=== PATIENT | female | born 1940 | race Caucasian/White ===

== ENCOUNTER → 2016-12-01 | Outpatient (CLI) | payer MEDICARE ==
--- NOTE | 2016-12-01 12:12 | RAD ---
Bone Densitometry History: Osteoporosis screening, postmenopausal, white female, tobacco use. Comparison: 09/30/2010. Findings: Bone Densitometry was performed with dual photon absorption of the lumbar spine and proximal right femur. Lumbar Spine: Bone density is 0.845 g/cm2 for L1-L4. T-score is -2.8. Bone mineral density of the lumbar spine demonstrates 6.8% decrease from previous study. Right Femur: Bone density is 0.659 g/cm2. T-score is -2.9. Bone mineral density of the right hip demonstrates 8.7% decrease from previous study. 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 World Health Organization definition of osteoporosis and osteopenia for women: normal equals T score at or above -1.0 standard deviations; osteopenia equals T score between -1.0 and -2.5 standard deviations; osteoporosis equals T score at or below -2.5 standard deviations.
--- NOTE | 2016-12-01 13:36 | RAD ---
EXAM: MAMMO WILIAM SCREENING BILATERAL. HISTORY: Screening. COMPARISON: 06/25/2014. FINDINGS: 2-D and 3-D tomosynthesis mammograms were obtained of both breasts in the CC and MLO projections. Computer-aided detection (CAD) was utilized. The breast parenchyma is dense which could reduce sensitivity of mammography (tissue density D). No dominant suspicious mass, suspicious microcalcifications, or architectural distortion is identified. Both breasts demonstrate benign appearing calcifications. IMPRESSION: No mammographic evidence of malignancy. BI-RADS CATEGORY: 2 BENIGN FINDING RECOMMENDED FOLLOW-UP: 12M 12 MONTH FOLLOW-UP PQRS compliance statement: Patient information was entered into a reminder system with a target due date for the next mammogram. Mammography is a sensitive method for finding small breast cancers, but it does not detect them all and is not a substitute for careful clinical examination. A negative mammogram does not negate a clinically suspicious finding and should not result in delay in biopsying a clinically suspicious abnormality. "Our facility is accredited by the [employer] Mammography Program."
== END | disposition home or self-care (01) ==
LOC: MAMMO 11:10
PROVIDERS: ATTEND Specialist
DX: Z12.31 Encounter for screening mammogram for malignant neoplasm of breast (principal); M85.80 Other specified disorders of bone density and structure, unspecified site; M81.0 Age-related osteoporosis without current pathological fracture; Z78.0 Asymptomatic menopausal state; Z72.0 Tobacco use
CPT/HCPCS: 77063; 77080; G0202; 77067

== ENCOUNTER → 2017-09-29 | Outpatient (CLI) | payer MEDICARE | END | disposition home or self-care (01) | LOC: SURG 11:43 | PROVIDERS: ATTEND Anesthesiology Pain Medicine | DX: M47.896 Other spondylosis, lumbar region (principal); E10.69 Type 1 diabetes mellitus with other specified complication; M62.81 Muscle weakness (generalized); E07.89 Other specified disorders of thyroid; R51 Headache | CPT/HCPCS: 99203 ==

== ENCOUNTER → 2017-10-14 | Outpatient (CLI) | payer MEDICARE ==
[~2017-10-14] MED LIST: DEXAMETHASONE SOD PHOS 4 MG/ML VIAL ONE; IOHEXOL 300 MG/ML 50 ML VIAL. ONE; LIDOCAINE 1% PF 30 ML VIAL. ONE
== END | disposition home or self-care (01) ==
LOC: SURG 10:39
PROVIDERS: ATTEND Anesthesiology Pain Medicine
DX: M54.12 Radiculopathy, cervical region (principal); I10 Essential (primary) hypertension; E10.9 Type 1 diabetes mellitus without complications; K74.60 Unspecified cirrhosis of liver; E07.9 Disorder of thyroid, unspecified; Z79.899 Other long term (current) drug therapy
CPT/HCPCS: 62321; J1100; J2001; Q9967

== ENCOUNTER → 2017-11-12 | Outpatient (CLI) | payer MEDICARE ==
--- NOTE | 2017-11-12 11:43 | RAD ---
PQRS Compliance Statement: One or more of the following individualized dose reduction techniques were utilized for this examination: 1. Automated exposure control 2. Adjustment of the mA and/or kV according to patient size 3. Use of iterative reconstruction technique CT LUMBAR SPINE WO CONTRAST Clinical Indication: LOW BACK PAIN, HX OF DEGENERATION, HX OF POLIO Comparison: None. TECHNIQUE: Helical CT imaging of the lumbar spine is performed without IV contrast. Findings: There is no compression fracture. The vertebral body height and alignment are maintained. The disc spaces are maintained. Transverse processes are intact. Visualized pelvic bones unremarkable. L1/L2 and L2/L3: Central canal and neural foramina are patent. L3/L4: There is small broad-based posterior disc osteophyte complex and mild ligamentum flavum redundancy. No significant central canal stenosis. There is mild left and moderate right neural foraminal narrowing. L4/L5: Minimal broad-based posterior disc osteophyte complex. Mild ligamentum flavum redundancy. The central canal is patent. Moderate right and mild to moderate left neural foraminal narrowing. L5/S1: Unremarkable. Lung bases are clear. Adrenal gland hyperplasia. Cholecystectomy. Severe atherosclerotic calcification of the abdominal aorta and iliac arteries. There is prominent stool in the right colon. IMPRESSION: 1. No acute compression fracture or malalignment. 2. Minimal degenerative spondylosis for patient age. Individual levels detailed above. Electronically signed by: Manjit Belle MD (11/12/2017 11:40 AM) [id number]
== END | disposition home or self-care (01) ==
LOC: CT 09:56
PROVIDERS: ATTEND Psychiatry & Neurology Neurology
DX: M47.896 Other spondylosis, lumbar region (principal); M48.061 Spinal stenosis, lumbar region without neurogenic claudication; M25.78 Osteophyte, vertebrae; I70.0 Atherosclerosis of aorta; E27.8 Other specified disorders of adrenal gland; I10 Essential (primary) hypertension; E10.69 Type 1 diabetes mellitus with other specified complication; Z86.12 Personal history of poliomyelitis
CPT/HCPCS: 72131

== ENCOUNTER → 2017-11-18 | Outpatient (CLI) | payer MEDICARE ==
[~2017-11-18] MED LIST changes: +BUPIVACAINE MPF 0.5% 30 ML VIAL. ONE; -DEXAMETHASONE SOD PHOS 4 MG/ML VIAL ONE; -IOHEXOL 300 MG/ML 50 ML VIAL. ONE
== END | disposition home or self-care (01) ==
LOC: SURG 10:00
PROVIDERS: ATTEND Anesthesiology Pain Medicine
DX: M47.816 Spondylosis without myelopathy or radiculopathy, lumbar region (principal); I10 Essential (primary) hypertension; M19.90 Unspecified osteoarthritis, unspecified site; E10.9 Type 1 diabetes mellitus without complications; F17.210 Nicotine dependence, cigarettes, uncomplicated; Z72.89 Other problems related to lifestyle; Z88.2 Allergy status to sulfonamides; Z88.0 Allergy status to penicillin; Z88.1 Allergy status to other antibiotic agents; Z88.8 Allergy status to other drugs, medicaments and biological substances
CPT/HCPCS: 64493; 64494; J2001; J3490; 64495

== ENCOUNTER → 2017-12-02 | Outpatient (CLI) | payer MEDICARE ==
--- NOTE | 2017-12-02 15:04 | RAD ---
DATE: 12/02/2017 EXAM: MAMMO WILIAM SCREENING BILATERAL HISTORY: Routine screening COMPARISON: 12/01/2016 This study was interpreted with the benefit of Computerized Aided Detection (CAD). The breast parenchyma is dense, which could reduce the sensitivity of mammography. Breast parenchyma level density D. FINDINGS: 2-D and 3-D tomosynthesis imaging was performed in CC and MLO projections. No new or enlarging breast densities are seen. No architectural distortion is evident. Benign type calcifications are present in both breasts. No suspicious microcalcifications have developed. IMPRESSION: 1. Dense breasts. 2. Stable mammograms without evidence of malignancy. BI-RADS CATEGORY: 2 BENIGN FINDING(S) RECOMMENDED FOLLOW-UP: 12M 12 MONTH FOLLOW-UP PQRS compliance statement: Patient information was entered into a reminder system with a target due date for the next mammogram. Mammography is a sensitive method for finding small breast cancers, but it does not detect them all and is not a substitute for careful clinical examination. A negative mammogram does not negate a clinically suspicious finding and should not result in delay in biopsying a clinically suspicious abnormality. "Our facility is accredited by the [employer] Mammography Program."
== END | disposition home or self-care (01) ==
LOC: MAMMO 10:21
PROVIDERS: ATTEND Nurse Practitioner Family
DX: Z12.31 Encounter for screening mammogram for malignant neoplasm of breast (principal)
CPT/HCPCS: 77063; 77067

== ENCOUNTER → 2018-09-01 | Outpatient (CLI) | payer MEDICARE ==
--- NOTE | 2018-09-01 10:50 | RAD ---
ABDOMEN COMPLETE History: Nausea, weight loss Comparison: None. Findings: Multiple sonographic images of the abdomen are submitted. There has been cholecystectomy. There is no abnormality in the region of the pancreas although pancreas poorly visualized in part from bowel gas. Abdominal aortic caliber is within normal limits up to 1.8 cm, scattered plaque. There is segmental visualization of the inferior vena cava. Common bile duct is within normal limits about 0.4 cm. No focal hepatic lesion is demonstrated, hepatic echotexture within normal limits. Right lobe of the liver measured 14.1 cm longitudinal. Right kidney measured 9.8 x 5.2 x 5.2 cm. Left kidney measured 9.9 x 5.2 x 4.5 cm. There is no hydronephrosis of either kidney. Spleen measured 9.4 cm. No free fluid is demonstrated. Impression: 1. There has been cholecystectomy, no significant abnormality demonstrated. Electronically signed by: Patricio Spencer MD (09/01/2018 10:46 AM) [id number]
== END | disposition home or self-care (01) ==
LOC: US 08:46
PROVIDERS: ATTEND Internal Medicine Gastroenterology
DX: R63.4 Abnormal weight loss (principal); R11.0 Nausea; I70.0 Atherosclerosis of aorta; Z90.49 Acquired absence of other specified parts of digestive tract
CPT/HCPCS: 76700

== ENCOUNTER → 2018-10-25 | Outpatient (CLI) | payer MEDICARE ==
--- NOTE | 2018-10-25 14:59 | RAD ---
PQRS Compliance statement: One or more of the following individualized dose reduction techniques were utilized for this examination: 1. Automated exposure control. 2. Adjustment of the mA and/or kV according to patient size. 3. Use of iterative reconstruction technique. Indication:Swollen ear several days ago, cellulitis of face.Pt diabetic. TECHNIQUE: CT of the neck soft tissue without IV contrast with multiplanar reformats. COMPARISON:None FINDINGS: Limited exam due to lack of IV contrast. Noncontrast sections through the brain and orbits are within normal limits. The nasopharynx, oropharynx and hypopharynx are within normal limits. No enlarged deep cervical adenopathy. The noncontrast appearance of the bilateral submandibular glands and right parotid gland is within normal limits. 1.2 x 0.9 cm nodule in the left parotid gland is seen. Mild atherosclerotic disease seen in the bilateral carotid bulbs. Visualized lung apices demonstrate mild emphysema. Bilateral external auditory canals and inner ear cavities are well-aerated. Bilateral mastoid air cells are well-aerated. Visualized paranasal sinuses are clear. Mild atherosclerotic calcification seen of the bilateral cavernous segments of the ICA. No bony erosions are seen in the mastoid air cells. No suspicious bony lesion. Mild cervical spine degenerative disc disease. IMPRESSION: Limited Exam due to lack of IV contrast. 1. No evidence of mastoiditis or middle ear infection. 2. Left parotid gland nodule likely intraparotid lymph node. Nonemergent Ultrasound recommended. Electronically signed by: Mati Walsh DO (10/25/2018 2:57 PM) [facility]
== END | disposition home or self-care (01) ==
LOC: CT 13:40
PROVIDERS: ATTEND Specialist
DX: K11.8 Other diseases of salivary glands (principal); L03.211 Cellulitis of face; I65.23 Occlusion and stenosis of bilateral carotid arteries; J43.9 Emphysema, unspecified; H93.8X9 Other specified disorders of ear, unspecified ear; M50.30 Other cervical disc degeneration, unspecified cervical region; E11.9 Type 2 diabetes mellitus without complications
CPT/HCPCS: 70490

== ENCOUNTER → 2018-11-10 | Outpatient (CLI) | payer MEDICARE ==
--- NOTE | 2018-11-10 17:20 | RAD ---
Left parotid ultrasound, 11/10/2018: HISTORY: Left parotid neoplasm The left parotid gland was carefully scanned. The right gland was also scanned for comparison purposes. There is an oval-shaped solid 18 x 13 x 10 mm smooth hypoechoic mass in the left parotid gland. It is mildly heterogeneous. There is a second 12 x 6 x 6 mm nodule in the left parotid gland with similar sonographic characteristics. These findings are nonspecific. In the right parotid gland there is a 12 x 9 x 7 mm hypoechoic nodule. It is smooth with mildly heterogeneous internal echoes and internal vascularity. There is a suggestion of a fatty hilum. This may represent a lymph node. IMPRESSION: Bilateral solid parotid nodules as described above. Electronically signed by: Edilson Mcgraw MD (11/10/2018 5:17 PM) [facility]
== END | disposition home or self-care (01) ==
LOC: US 10:42
PROVIDERS: ATTEND Specialist
DX: D11.0 Benign neoplasm of parotid gland (principal); K11.8 Other diseases of salivary glands
CPT/HCPCS: 76536

== ENCOUNTER → 2018-12-06 | Outpatient (CLI) | payer MEDICARE ==
--- NOTE | 2018-12-06 11:08 | RAD ---
DATE: 12/06/2018 EXAM: MAMMO WILIAM SCREENING BILATERAL HISTORY: Routine screening COMPARISON: 12/02/2017 This study was interpreted with the benefit of Computerized Aided Detection (CAD). Breast Density: DENSE The breast parenchyma is dense, which could reduce the sensitivity of mammography. Breast parenchyma level density D. FINDINGS: 2-D and 3-D tomosynthesis imaging was performed in CC and MLO projections. No new or enlarging breast densities are seen. Benign type calcifications are present. No suspicious microcalcifications have developed. IMPRESSION: Stable mammograms without evidence of malignancy. BI-RADS CATEGORY: 2 BENIGN FINDING(S) RECOMMENDED FOLLOW-UP: 12M 12 MONTH FOLLOW-UP PQRS compliance statement: Patient information was entered into a reminder system with a target due date for the next mammogram. Mammography is a sensitive method for finding small breast cancers, but it does not detect them all and is not a substitute for careful clinical examination. A negative mammogram does not negate a clinically suspicious finding and should not result in delay in biopsying a clinically suspicious abnormality. "Our facility is accredited by the [employer] Mammography Program."
== END | disposition home or self-care (01) ==
LOC: MAMMO 09:44
PROVIDERS: ATTEND Specialist
DX: Z12.31 Encounter for screening mammogram for malignant neoplasm of breast (principal); N95.9 Unspecified menopausal and perimenopausal disorder
CPT/HCPCS: 77063; 77067

== ENCOUNTER → 2019-05-16 | Outpatient (CLI) | payer MEDICARE ==
--- NOTE | 2019-05-16 16:15 | RAD ---
Parotid ultrasound 05/16/2019 INDICATION: Parotid gland masses, 6 month follow-up. COMPARISON: CT neck 10/25/2018, ultrasound 11/10/2018 TECHNIQUE: Sonographic evaluation of the parotid gland was performed utilizing grayscale and color Doppler. FINDINGS: Stable hypoechoic circumscribed masses within the parotid gland. In the left parotid lobe, there is a 1.8 x 1.0 x 1.3 cm mass, reducing measuring similar. There is an additional 0.7 x 0.8 x 1.0 cm, hypoechoic circumscribed mass which previously measured 0.6 x 0.6 x 1.2 cm. This finding is not significantly changed. In the right parotid gland there is a 1.2 x 0.8 x 1.1 cm circumscribed mass which previously measured 1.2 x 0.7 x 0.9cm. IMPRESSION: Stable indeterminate parotid masses without significant interval change since 11/10/2018. Fine-needle aspiration is recommended if there is persistent clinical concern. Electronically signed by: Riri Moody MD (05/16/2019 4:12 PM) [facility]
== END | disposition home or self-care (01) ==
LOC: US 07:47
PROVIDERS: ATTEND Otolaryngology
DX: R22.1 Localized swelling, mass and lump, neck (principal)
CPT/HCPCS: 76536

== ENCOUNTER → 2019-09-29 | Day surgery (SDC) | payer MEDICARE ==
[~2019-09-29] MED LIST changes: +ACETAMINOPHEN 325 MG TABLET PO PRN; +ALBUTEROL SULFATE 2.5 MG/3 ML NEBU. NEB PRN; +ASPI81TA50 PO; +ATROPINE 0.5 MG/5 ML DISP.SYRIN. IV PRN; -BUPIVACAINE MPF 0.5% 30 ML VIAL. ONE; +CRAN400C PO; +FURO-68 PO; +INSU100C SQ; +IV RINGERS SOLUTION,LACTATED 1,000 ML IV SCH; +LEVO75TA5 PO; -LIDOCAINE 1% PF 30 ML VIAL. ONE; +LISI10TA2 PO; +MULT-245 PO; +MV-M1TAB7 PO; +ONDANSETRON PF 4 MG/2 ML VIAL. IV PRN; +PHENOL ORAL SPRAY 177ML BOTTLE. MM PRN; +POTA8TAB PO; +PROPOFOL 60 ML IV ONE; +URSO250T3 PO; +VENL75CA PO; +diphenhydrAMINE 50 MG/ML VIAL IV PRN
[2019-09-29 13:03] VITALS: BP 103/52
--- NOTE | 2019-10-03 17:06 | PATHOLOGY ---
[facility] Accession Number: [id number] . 01 Material submitted: . PART A: stomach - ANTRUM BX PART B: colon - TRANSVERSE COLON POLYP. Modifiers: transverse PART C: sigmoid colon - SIGMOID POLYP . 01 Clinical history: . Gastritis/history colon polyp . 02 Diagnosis: A. Gastric biopsies, antrum: - Chronic gastritis, mild. . B. Colon biopsy, transverse colon polyp: - Tubular adenoma. . C. Colon biopsy, sigmoid polyp: - Hyperplastic polyp. . (JPM:hola; 10/03/2019) [facility] 10/03/2019 1318 Local . 02 Comment: Sections of the gastric antral biopsy show congestion and mild chronic inflammation. A properly controlled immunoperoxidase stain for Helicobacter is negative for Helicobacter organisms. . Sections of the transverse colon biopsy reveal a tubular adenoma showing no high-grade dysplasia or evidence of malignancy. . Sections of the sigmoid colon biopsy reveal a hyperplastic polyp. There are no adenomatous changes or evidence of malignancy. . (JPM:hola; 10/03/2019) . Special stain performed: Immunoperoxidase stain for Helicobacter on A1. . 02 Electronically signed: . Conor Davis MD, Pathologist NPI- [id number] . 01 Gross description: . A. The specimen is received in formalin, labeled "Alivia, Aleah, antrum BX" and consists of 3 fragments of pink-edmondson tissue measuring between 0.2 x 0.2 cm and 0.8 x 0.3 cm which are entirely submitted in A1. . B. The specimen is received in formalin, labeled "Alivia, Aleah, transverse colon polyp" and consists of a fragment of edmondson tissue measuring 0.5 x 0.4 x 0.2 cm which is entirely submitted in B1. . C. The specimen is received in formalin, labeled "Alivia, Aleah, sigmoid polyp" and consists of a fragment of pink-edmondson tissue measuring 0.3 x 0.3 x 0.3 cm which is entirely submitted in C1. (SDY; 10/02/2019) [facility] 10/02/2019 1746 Local . 02 Pathologist provided ICD-10: K29.50, D12.3, K63.5 . 02 CPT . 500445, 257502, 052955, [id number] Specimen Comment: A courtesy copy of this report has been sent to [phone], [phone] Specimen Comment: [id number] Specimen Comment: Report sent to / DR BLANCO Performed at: 01 [facility] [address], [place] [id number] MD Xavi Moyer MD Phone: [phone] Performed at: 02 [facility] [address] [place], [place] [id number] MD Conor Davis MD Phone: [phone]
== END ==
LOC: SURG 10:27
PROVIDERS: ATTEND Internal Medicine Gastroenterology
DX: Z12.11 Encounter for screening for malignant neoplasm of colon (principal); K63.5 Polyp of colon; K29.50 Unspecified chronic gastritis without bleeding; K57.30 Diverticulosis of large intestine without perforation or abscess without bleeding; K21.0 Gastro-esophageal reflux disease with esophagitis; K22.2 Esophageal obstruction; K64.0 First degree hemorrhoids; K44.9 Diaphragmatic hernia without obstruction or gangrene; I10 Essential (primary) hypertension; E03.9 Hypothyroidism, unspecified; E11.9 Type 2 diabetes mellitus without complications; F32.9 Major depressive disorder, single episode, unspecified; Z86.010 Personal history of colon polyps; Z79.899 Other long term (current) drug therapy; Z79.82 Long term (current) use of aspirin; Z90.49 Acquired absence of other specified parts of digestive tract; Z90.710 Acquired absence of both cervix and uterus; Z98.890 Other specified postprocedural states; Z79.84 Long term (current) use of oral hypoglycemic drugs
CPT/HCPCS: 43239; 45380; 45385; 82947; 88305; 88342; J2704; J7120

== ENCOUNTER 2019-12-23 18:25 | Inpatient (IN) | payer MEDICARE ==
[~2019-12-23] VITALS: Ht 160 cm; Wt 47.6 kg
[~2019-12-23 18:25] MED LIST changes: -ACETAMINOPHEN 325 MG TABLET PO PRN; -ALBUTEROL SULFATE 2.5 MG/3 ML NEBU. NEB PRN; -ATROPINE 0.5 MG/5 ML DISP.SYRIN. IV PRN; -IV RINGERS SOLUTION,LACTATED 1,000 ML IV SCH; -ONDANSETRON PF 4 MG/2 ML VIAL. IV PRN; -PHENOL ORAL SPRAY 177ML BOTTLE. MM PRN; -PROPOFOL 60 ML IV ONE; -diphenhydrAMINE 50 MG/ML VIAL IV PRN
[2019-12-23] MEDS ORDERED: IV NORMAL SALINE 1,000ML 1,000 ML IV ONE (18:45)
[2019-12-23] MEDS ORDERED: ONDANSETRON PF 4 MG/2 ML VIAL. IVP ONE (18:45)
[2019-12-23 18:58] LABS: BASO # 0.3 x10^3/uL (0.0-0.2); BASO % 1 % (0-3); EOS # 0.1 x10^3/uL (0.0-0.7); EOS % 0 % (0-3); HEMATOCRIT 45.3 % (36.0-47.0); LYMPH # 2.4 x10^3/uL (1.0-4.8); LYMPH % 9 % (24-48); MEAN CORPUSCULAR HEMOGLOBIN 32 pg (25-35); MEAN CORPUSCULAR HGB CONC 33 g/dL (31-37); MEAN CORPUSCULAR VOLUME 97 fL (79-100); MONO % 4 % (0-9); NEUT # 24.1 x10^3uL (1.8-7.7); NEUT % 86 % (31-73); PLATELET COUNT 329 x10^3/uL (140-400); RED BLOOD COUNT 4.69 x10^6/uL (3.50-5.40); RED CELL DISTRIBUTION WIDTH 16.2 % (11.5-14.5); WHITE BLOOD COUNT 27.9 x10^3/uL (4.0-11.0)
--- NOTE | 2019-12-23 19:00 | PHYS DOC ---
Past History Past Medical History: Cancer, Depression, Diabetes, Hypothyroid, Liver Disease Past Surgical History: Other Additional Past Surgical Histo: UNKOWN SURGICAL HX Additional Smoking Information: 1/2 - 1 PACK/DAY Alcohol Use: None General Adult EDM: Chief Complaint: WEAKNESS/GENERALIZED HPI: HPI: 79-year-old female presents with inability urinate. Patient was urinating fine this morning, but has not urinated this afternoon. She has liver issues, lung cancer and is supposed to be considering hospice. She also has diabetes and has an insulin pump. She further complains of some back pain, but is most concerned about her inability PE denies she feels like she needs to go. She has had a couple episodes of vomiting today. She denies fever. Review of Systems: Review of Systems: Constitutional: Denies fever or chills Eyes: Denies change in visual acuity HENT: Denies nasal congestion or sore throat Respiratory: shortness of breath at baseline Cardiovascular: Denies chest pain or edema GI: nausea, vomiting. Denies abdominal pain, bloody stools or diarrhea : Inability to urinate Musculoskeletal: Denies back pain or joint pain Integument: Denies rash Neurologic: Denies headache, focal weakness or sensory changes Endocrine: Denies polyuria or polydipsia Lymphatic: Denies swollen glands Psychiatric: Denies depression or anxiety Heart Score: Risk Factors: Risk Factors: DM, Current or recent (<one month) smoker, HTN, HLP, family history of CAD, obesity. Risk Scores: Score 0 - 3: 2.5% MACE over next 6 weeks - Discharge Home Score 4 - 6: 20.3% MACE over next 6 weeks - Admit for Clinical Observation Score 7 - 10: 72.7% MACE over next 6 weeks - Early Invasive Strategies Current Medications: Current Meds: Current Medications Medications (Trade) Dose Ordered Sig/Marcia Start Time Stop Time Status Last Admin Dose Admin Fentanyl Citrate (Fentanyl 2ml Vial) 75 mcg 1X ONCE 12/23/19 18:45 12/23/19 18:46 DC Ondansetron HCl (Zofran) 4 mg 1X ONCE 12/23/19 18:45 12/23/19 18:46 DC Sodium Chloride 1,000 ml @ 1,000 mls/hr 1X ONCE 12/23/19 18:45 12/23/19 19:44 Allergies: Allergies: Allergies Coded Allergies Type Severity Reaction Last Updated Verified Penicillins Allergy Intermediate 09/29/19 Yes Sulfa (Sulfonamide Antibiotics) Allergy Intermediate 09/29/19 Yes alendronate sodium Allergy Intermediate 09/29/19 Yes erythromycin base Allergy Intermediate 09/29/19 Yes milk Allergy Intermediate 09/29/19 Yes tetanus and diphtheria toxoids Allergy Intermediate 09/29/19 Yes varenicline Allergy Intermediate 09/28/19 Yes gabapentin Allergy Unknown 12/23/19 Yes Physical Exam: PE: Constitutional: Well developed, well nourished, no acute distress, non-toxic appearance. [] HENT: Normocephalic, atraumatic, bilateral external ears normal, oropharynx moist, no oral exudates, nose normal. [] Eyes: PERRLA, EOMI, conjunctiva normal, no discharge. [] Neck: Normal range of motion, no tenderness, supple, no stridor. [] Cardiovascular:Heart rate regular rhythm, no murmur [] Lungs & Thorax: Bilateral breath sounds clear to auscultation [] Abdomen: Bowel sounds normal, soft, no tenderness, no masses, no pulsatile masses. [] Skin: Warm, dry, no erythema, no rash. [] Back: No tenderness, no CVA tenderness. [] Extremities: No tenderness, no cyanosis, no clubbing, ROM intact, no edema. [] Neurologic: Alert and oriented X 3, normal motor function, normal sensory function, no focal deficits noted. [] Psychologic: Affect normal, judgement normal, mood normal. [] Current Patient Data: Vital Signs: Vital Signs Date Time Temp Pulse Resp B/P (MAP) Pulse Ox O2 Delivery O2 Flow Rate FiO2 12/23/19 18:27 96.3 74 20 110/55 (73) 90 Room Air EKG: EKG: [] Radiology/Procedures: Radiology/Procedures: [] Course & Med Decision Making: Course & Med Decision Making Pertinent Labs and Imaging studies reviewed. (See chart for details) The patient's labs are significant for a very elevated white blood cell count. I have no previous for comparison. The patient's lactic acid is greater than 5. I will treat her as a sepsis patient. Suspect urosepsis. We are giving her fluids as well as IV potassium because her potassium is 2.7. She has a stated penicillin allergy so I will give her levofloxacin IV. Her urinalysis is still pending. I spoke with Dr. Walker and he has accepted the patient for ICU admission. She is DNR. 61 minutes of critical care time was spent on this patient exclusive of other b illable procedures. [] Dragon Disclaimer: Dragon Disclaimer: This electronic medical record was generated, in whole or in part, using a voice recognition dictation system. Departure Departure: Impression: Primary Impression: Lactic acidosis Disposition: ADMITTED INPATIENT Admitting Physician: Devin Walker Condition: GUARDED Referrals: PRANEETH BLANCO MD (PCP) Sepsis Assessment: Date and Time of Assessment Date: December 23, 2019 Time: 19:15 Vital Signs Vital Signs Vital Signs Date Time Temp Pulse Resp B/P (MAP) Pulse Ox O2 Delivery O2 Flow Rate FiO2 12/23/19 20:24 74 24 121/65 (83) 93 Nasal Cannula 2.0 12/23/19 18:27 96.3 Respirations Respiratory Effort: Normal, Shortness of air Respiratory Pattern: Normal Cardiovascular Pulse Rhythm: Regular HEART: No murmurs noted Lung Sounds Breath Sounds: Diminished Capillary Refill Capillary Refill: Rt Foot > 3 seconds Peripheral Pulse Pulse Location: Monitor Pulse Strength: Normal (2+) Pulse Assessment Method: Monitor Integumentary Skin: Warm Skin Moisture: Dry Skin Turgor: Decreased Skin Color: warm Fingernail Color: WNL Sepsis Assessment: Date and Time of Assessment Date: December 23, 2019 Time: 21:14 Vital Signs Vital Signs Vital Signs Date Time Temp Pulse Resp B/P (MAP) Pulse Ox O2 Delivery O2 Flow Rate FiO2 12/23/19 20:24 74 24 121/65 (83) 93 Nasal Cannula 2.0 12/23/19 18:27 96.3 Respirations Respiratory Effort: Shortness of air Respiratory Pattern: Normal Cardiovascular Pulse Rhythm: Regular HEART: No murmurs noted Lung Sounds Breath Sounds: Diminished Capillary Refill Capillary Refill: Rt Hand < 3 seconds Peripheral Pulse Pulse Location: Monitor Pulse Strength: Normal (2+) Pulse Assessment Method: Monitor Integumentary Skin: Warm Skin Moisture: Dry Skin Turgor: Normal Skin Color: warm Fingernail Color: WNL JOSE MARIA NICHOLSON DO December 23, 2019 19:00
[2019-12-23 19:13] LABS: ALBUMIN 3.6 g/dL (3.4-5.0); ALBUMIN/GLOBULIN RATIO 0.9 (1.0-1.7); CALCIUM 10.5 mg/dL (8.5-10.1); CREATININE 1.6 mg/dL (0.6-1.0); GFR 31.2; TOTAL PROTEIN 7.6 g/dL (6.4-8.2)
[2019-12-23] MEDS ORDERED: POTASSIUM CL 40MEQ IN 0.9%NACL 1,000 ML IV ONE (19:15)
[2019-12-23 19:16] LABS: POTASSIUM 2.6 mmol/L (3.5-5.1)
[2019-12-23 19:23] LABS: % BANDS 9 % (0-9); % EOS 1 % (0-5); % LYMPHS 10 % (24-48); % MONOS 4 % (0-10); % SEGS 76 % (35-66)
[2019-12-23 19:24] LABS: PLT ESTIMATE ADEQUATE (ADEQUATE)
[2019-12-23] MEDS ORDERED: ACETAMINOPHEN 325 MG TABLET PO PRN (20:30)
[2019-12-23 20:53] LABS: CLARITY,URINE HAZY; COLOR,URINE AMBER; GLUCOSE,URINE NEG (NEG)
[2019-12-23 20:54] LABS: BILIRUBIN,URINE NEG (NEG)
[2019-12-23 20:55] LABS: NITRITE,URINE POS (NEG)
[2019-12-23 20:56] LABS: BACTERIA,URINE MOD /HPF (0-FEW); SQUAMOUS EPITHELIAL CELL,UR MOD /LPF
[2019-12-23 20:57] LABS: HYALINE CASTS, URINE MANY /HPF
[2019-12-23 21:30] VITALS: BP 141/73
--- NOTE | 2019-12-23 21:30 | NUR ---
Pt admitted from ER to ICU bed 4 via [facility], accompanied by EMS staff and nursing staff. Pt transferred from [facility] to bed x2 assist. Pt rolled over to remove excess linens and skin assessment completed, skin intact. Pt here for complaints of back/flank pain (6/10, sharp), N/V and "unable to urinate." Pt placed on tele monitor, ST ach noted on monitor. Pt on 3L NC, O2 sat 89-93, does not use O2 at home. Health history and home medications reviewed with pt. Pt with recent cancer diagnosis (lung and parotid gland). Pt lives at home with . Pt is a smoker (30+ years), RT consulted for smoking cessation. CM and Dietary also consulted. Pt was to have video call with PCP next week about possibly going on Hospice, Pt conformed DNR status. SCDs for VTE. POC reviewed with pt, understanding verbalized. Pt was given written information regarding hospital policies, unit procedures and contact persons. Valuables were checked and left at bedside. Call light within reach. Pt did trigger Dr Walker called for further orders. IV Levaquin given. Repeat Lactic level down to 2.7. New IV fluid rate changed after sepsis fluids infused (need 1500mls).
[2019-12-23] MEDS: ONDANSETRON PF 4 MG/2 ML VIAL. IVP PRN (22:13)
[2019-12-23 22:30] VITALS: BP 139/64
[2019-12-23 23:00] VITALS: BP 156/74
[2019-12-23] MEDS ORDERED: POTASSIUM CL 40MEQ IN 0.9%NACL 1,000 ML IV SCH (23:30)
[2019-12-24] VITALS (25 sets, daily range): BP systolic 114–178; BP diastolic 51–100
[2019-12-24] MEDS ORDERED: DENO60DI SQ (02:27)
[2019-12-24] MEDS ORDERED: URSO300C13 PO (02:27)
[2019-12-24] MEDS ORDERED: INSU100I13 SQ (02:27)
[2019-12-24] MEDS ORDERED: CHLO4TAB20 PO (02:27)
[2019-12-24] MEDS ORDERED: FLUO5DRO5 OP (02:27)
[2019-12-24] MEDS ORDERED: INSU100V38 SQ (02:27)
[2019-12-24] MEDS ORDERED: SCOP1PAT11 TP (02:27)
[2019-12-24] MEDS ORDERED: TIOT18CA IH (02:27)
[2019-12-24] MEDS ORDERED: INSU100V13 SQ (02:27)
[2019-12-24] MEDS ORDERED: GLUC1KIT IJ (02:27)
[2019-12-24] MEDS ORDERED: POTASSIUM CHLORIDE 20 MEQ TABLET.ER. PO ONE (07:30)
[2019-12-24 07:34] LABS: BASO # 0.1 x10^3/uL (0.0-0.2); BASO % 0 % (0-3); EOS % 0 % (0-3); HEMATOCRIT 49.3 % (36.0-47.0); HEMOGLOBIN 16.2 g/dL (12.0-15.5); LYMPH # 0.7 x10^3/uL (1.0-4.8); LYMPH % 3 % (24-48); MEAN CORPUSCULAR HEMOGLOBIN 32 pg (25-35); MEAN CORPUSCULAR HGB CONC 33 g/dL (31-37); MEAN CORPUSCULAR VOLUME 97 fL (79-100); MONO # 0.7 x10^3/uL (0.0-1.1); MONO % 3 % (0-9); NEUT # 26.6 x10^3uL (1.8-7.7); NEUT % 94 % (31-73); PLATELET COUNT 298 x10^3/uL (140-400); RED CELL DISTRIBUTION WIDTH 16.3 % (11.5-14.5); WHITE BLOOD COUNT 28.1 x10^3/uL (4.0-11.0)
[2019-12-24 07:39] LABS: CALCIUM 8.6 mg/dL (8.5-10.1); CREATININE 1.4 mg/dL (0.6-1.0); GFR 36.4; POTASSIUM 5.3 mmol/L (3.5-5.1)
[2019-12-24] MEDS: ONDANSETRON PF 4 MG/2 ML VIAL. IVP PRN (07:39)
--- NOTE | 2019-12-24 07:52 | NUR ---
PT VOMITED FOLLOWING 1 DOSE OF POTASSIUM. PT REPORTS HER BACK IS HURTING AND APPEARS TO BE RESTLESS. PT'S SPO2 IS 84% ON A VENTI MASK ON 9 L. PT REPORTS SHE IS NOT SHORT OF BREATH BUT APPEARS TO BE TACHYPNEIC WITH RR AT 33. PT'S SKIN APPEARS TO BE YELLOWISH AND SHE STATES SHE FEELS "LIKE CRAP." PT VOMITED THIS MORNING AND IT APPEARED TO BE FINE COFFEE GROUND EMESIS. PT'S BS UPON ASSESSMENT THIS MORNING WAS 358. PT GAVE HERSELF INSULIN VIA INSULIN PUMP. RESPIRATORY THERAPY AT BEDSIDE ASSESSING PT. ORDER PLACED FOR ABG AND BREATHING TX. WILL CONTINUE AND ASSESS NEEDED.
[2019-12-24] MEDS: IPRATRPIUM/ALBUTEROL 0.5/2.5MG 3 ML NEBU. NEB SCH ×4 (08:00→21:09)
[2019-12-24 08:37] LABS: BGAS PH 7.32 (7.35-7.45)
--- NOTE | 2019-12-24 09:21 | RAD ---
AP chest. HISTORY: Short of breath. AP view was taken of the chest. There is density in the medial left lung base suggesting atelectasis of the left lower lobe. CT would be of benefit. There is shift of the mediastinum to the left also suggesting atelectasis. Right lung is clear. Heart is normal in size. IMPRESSION: 1. Left lower lobe atelectasis. 2. CT would be of benefit. Electronically signed by: Tony Campbell MD (12/24/2019 9:18 AM) [id number]
[2019-12-24] MEDS ORDERED: DEXTROSE 50% 25 GM / 50ML DISP.SYRIN. IV PRN (11:30)
[2019-12-24] MEDS: IV NORMAL SALINE 1,000ML 1,000 ML IV SCH ×2 (11:52→22:05)
[2019-12-24] MEDS: methylPREDNISolone SOD SUCC PF 40 MG/ML VIAL. IV SCH ×2 (11:52→22:04)
--- NOTE | 2019-12-24 12:00 | NUR ---
PT REMAINS ON VENTI MASK AT 10 L. PT REPORTS PAIN IN HER BACK.
--- NOTE | 2019-12-24 12:22 | HP ---
ADMIT DATE: 12/24/2019 ATTENDING PHYSICIAN: Dr. Doll. CHIEF COMPLAINT: Weakness. 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 She was recently diagnosed within the last couple of months with lung cancer with liver metastasis; exact cell type remains to be seen. She has extensive records, but I find no evidence of workup and biopsy. Her primary care physician is Dr. Lyric Fink who was centered at the [facility]. She has seen an oncologist there as well as radiation oncologist. The radiation oncologist put notes down that she was scheduled to get radiation therapy with the possibility of chemotherapy. Once again, I do not know the exact staging. She was short of breath this morning. Her chest x-ray is fairly clear. It has COPD changes, but no acute infiltrates. No fluid, so good news from that standpoint. Her oxygen saturations are adequate, but marginal. PAST MEDICAL HISTORY: Significant for the recent diagnosis of primary lung cancer, tissue type is pending, liver metastasis, primary biliary cirrhosis, previous liver biopsy, COPD, hypertension. CURRENT MEDICINES: Reviewed. She was taking albuterol, potassium, Tylenol, fentanyl, ondansetron, Levaquin. In addition, she was on a dose of Lasix daily, Actigall, venlafaxine, tiotropium, scopolamine, insulin, Synthroid, lisinopril, and chlorpheniramine. ALLERGIES: SHE HAS ALLERGIES TO PENICILLIN, SULFA DRUGS, ALENDRONATE, ERYTHROMYCIN, NEURONTIN, MILK, TETANUS, DIPHTHERIA TOXINS AND CHANTIX. SOCIAL HISTORY: She is a smoker for many years. She continues to smoke. Her alcohol history is negative. FAMILY HISTORY: Noncontributory. 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 She lives with her who is also a retired school examiner. REVIEW OF SYSTEMS: Significant for the generalized weakness. No nausea. She has had some dry heaves, decreased urine output. She is diabetic. She has an insulin pump. Her appetite has been poor. All other systems reviewed and turned to be negative. PHYSICAL EXAMINATION: GENERAL: When I saw her, this is a pleasant female who is fairly alert. VITAL SIGNS: Her initial vital signs showed a blood pressure 145/76, pulse is 91 and regular, temperature 98.6, oxygen saturations 90%, requiring 9 liters by Venturi mask. HEENT: Head is without trauma. Pupils are reactive. Sclerae nonicteric. Oropharynx clear. NECK: Supple, no bruits. LUNGS: Diffuse wheezing bilaterally. CARDIOVASCULAR: Showed distant heart tones. No gallops. Peripheral pulses are palpable and full. ABDOMEN: Soft, scaphoid, nontender. Hypoactive bowel sounds. Some guarding, but no rebound tenderness. EXTREMITIES: Showed no edema or cyanosis. NEUROLOGIC: Focally intact. Speech is fluent. Portable chest x-ray showed hyperexpansion of the lungs, no acute infiltrates or decompensation. No masses identified. I do not have reports of a previous CT scan or other workup. LABORATORY STUDIES: Arterial blood gases done on oxygen showed a pH of 7.32, pCO2 of 30 and a pO2 of 58. Hemoglobin 16.2 g, white count of 28,100, creatinine is 1.4, BUN 36, potassium 5.3 mEq, nonfasting blood sugar 358. ASSESSMENT: 1. A 79-year-old female with dehydration. 2. Recent diagnosis of primary lung cancer with liver metastasis, tissue type and staging is unclear at this time. 3. Profound chronic obstructive pulmonary disease. 4. Acute on chronic respiratory failure. 5. Type 2 diabetes, insulin pump. 6. Generalized debilitation. PLAN: 1. Admit to inpatient unit. 2. I will order Solu-Medrol, antibiotics and nebulizer therapy. 3. Morphine for pain and air hunger. 4. I will try to do research as to find out what their expectations are. I will call her after I finish orders to determine what exactly they want to do. Right now she is a DNR per advanced directives. YEIMY DOLL MD DR: DRU/kevan JOB#: [id number] / [id number]
[2019-12-24] MEDS: MORPHINE SULFATE 4 MG/ML DISP.SYRIN. IV PRN ×2 (12:47→22:05)
[2019-12-24] MEDS: INSULIN LISPRO 300 UNITS/3 ML VIAL. SQ SCH ×2 (12:47→17:00)
[2019-12-25] VITALS (13 sets, daily range): BP systolic 113–147; BP diastolic 57–76
[2019-12-25] MEDS: methylPREDNISolone SOD SUCC PF 40 MG/ML VIAL. IV SCH ×3 (05:42→21:32)
[2019-12-25] MEDS: IPRATRPIUM/ALBUTEROL 0.5/2.5MG 3 ML NEBU. NEB SCH ×4 (05:44→20:46)
--- NOTE | 2019-12-25 06:00 | NUR ---
Pt A&Ox4, cooperative with cares and assessments. Pt extremely SOA with minimal activity. If pt takes off mask for drink or phone call, O2 drops to lower 80s. Pt seems anxious about having to wear the mask now and not the NC. Pt using own insulin pump for blood sugar correction. Pt had restful night considering. Pt wore venturi mask at 6L (Fi02 30%) all night, maintained O2 sat at 89%-92%. Davey catheter to dependent drainage, had 950 on inocente cloudy urine out for shift. Plan for possible hospice consult today.
[2019-12-25] MEDS: INSULIN LISPRO 300 UNITS/3 ML VIAL. SQ SCH ×3 (08:00→16:52)
--- NOTE | 2019-12-25 09:03 | NUR ---
Patient is alert and oriented this am. Patient was switched over to 8L NC to eat breakfast. Patients O2 sats are currently at 93% on 8l NC. RN will assess patients O2 needs after patient finishes eating. Will try to titrate O2 down keeping O2 sats at acceptable level. Patient FSBG was 165 prior to breakfast. Patient has an insulin pump and administered 6.5 units of insulin via the pump therefore no dose of the sliding scale was given this am.
[2019-12-25] MEDS: MORPHINE SULFATE 4 MG/ML DISP.SYRIN. IV PRN ×3 (09:16→19:55)
--- NOTE | 2019-12-25 11:34 | PN ---
DATE: 12/25/2019 CHIEF COMPLAINT: Weakness. SUBJECTIVE: The patient is more alert. She has less dyspnea. She is still weak. She has some localized left-sided abdominal pain. The morphine does help. We have got her off the Ventimask. She is maintaining oxygen saturations at about 7 liters of supplemental oxygen. OBJECTIVE FINDINGS: VITAL SIGNS: Blood pressure is 123/61, pulse is 94 and regular, temperature 98.7, oxygen saturation 92% on 6 liters of nasal cannula. HEENT: Head is without trauma. Pupils are reactive. Sclerae nonicteric. Oropharynx is clear. NECK: Supple, no bruits identified. LUNGS: Diffuse wheezing in the upper airways with shallow respirations. CARDIOVASCULAR: Showed distant heart tones. No gallops. Peripheral pulses are palpable and full. ABDOMEN: Soft, scaphoid, nontender. EXTREMITIES: Show no cyanosis. There is muscle wasting. NEUROLOGIC: Focally intact. ASSESSMENT: 1. A 79-year-old female with acute on chronic respiratory failure. 2. Advanced chronic obstructive pulmonary disease. 3. Recent diagnosis of primary lung cancer with liver metastasis, by definition. Liver metastasis makes it a stage 4 cancer. Her pulmonary lesion is rather small and we have been unsuccessful so far for tissue type to determine whether this is small cell or non-small cell. 4. Type 2 diabetes. 5. Generalized debilitation. PLAN: 1. Keep in ICU. 2. Continue steroids, nebulizers and antibiotics. 3. Glucose control. 4. We shall wean down her supplemental oxygen. 5. The patient and I had a long discussion regarding further treatment and diagnosis. She has come to the realization that this is a terminal illness. At this time, she does not want any further heroics, meaning further treatment biopsy, radiation or chemotherapy. Therefore, she is agreeable having hospice coming to talk to her about discharge plans and hospice care. I will try to contact her primary care physician and her . YEIMY DOLL MD DR: DRU/kevan JOB#: [id number] / [id number] christina Perales Dr.
[2019-12-25] MEDS: IV NORMAL SALINE 1,000ML 1,000 ML IV SCH (14:10)
[2019-12-26] VITALS (7 sets, daily range): BP systolic 150–177; BP diastolic 77–87
[2019-12-26] MEDS: methylPREDNISolone SOD SUCC PF 40 MG/ML VIAL. IV SCH ×2 (05:13→14:00)
[2019-12-26] MEDS: IV NORMAL SALINE 1,000ML 1,000 ML IV SCH ×2 (05:13→16:50)
[2019-12-26] MEDS: IPRATRPIUM/ALBUTEROL 0.5/2.5MG 3 ML NEBU. NEB SCH ×4 (05:16→21:09)
[2019-12-26] MEDS: MORPHINE SULFATE 4 MG/ML DISP.SYRIN. IV PRN ×2 (05:16→18:13)
--- NOTE | 2019-12-26 06:00 | NUR ---
Pt A&Ox4, cooperative with cares and assessments, seems depressed. Pt extremely SOA with minimal activity but maintained O2sat above 89% on 4.5 L NC. Pt using own insulin pump for blood sugar correction. Pt had restful night, had 2 doses of PRN Morphine. Plan for possible DC home with hospice today or tomorrow.
[2019-12-26] MEDS: INSULIN LISPRO 300 UNITS/3 ML VIAL. SQ SCH ×3 (08:41→17:00)
[2019-12-26] MEDS: LISINOPRIL 10 MG TABLET PO SCH (11:22)
[2019-12-26] MEDS: LEVOTHYROXINE 75 MCG TABLET PO SCH (11:22)
--- NOTE | 2019-12-26 15:17 | PN ---
DATE: 12/26/2019 ATTENDING PHYSICIAN: Dr. Doll. CHIEF COMPLAINT: Weakness and shortness of breath. SUBJECTIVE: The patient is calm. She is not in acute distress. Her oxygen requirements have come down from 50-60% face mask down to 4 liters by nasal cannula with adequate saturations. She will be even tapered further. She will need supplemental oxygen; we are in the process of getting her oxygen when she goes home. She denied any pains. Her appetite is fair. She needs her glasses because she cannot see. OBJECTIVE FINDINGS: VITAL SIGNS: Her blood pressure today is 170/70, her pulse is between 90 and 100, temperature 98.6 degrees Fahrenheit, oxygen saturation 93% on 4 liters of supplemental oxygen by nasal cannula. HEENT: Head is without trauma. Pupils are reactive. Sclerae nonicteric. Oropharynx clear. NECK: Supple, no bruits identified. LUNGS: Otherwise clear very minimal wheezing noted in the upper airways. CARDIOVASCULAR: Showed regular heart tones. No obvious gallops. Peripheral pulses palpable and full. ABDOMEN: Soft, no guarding. Bowel sounds are hypoactive. EXTREMITIES: Show no cyanosis or edema. NEUROLOGIC: Focally intact. Speech is fluent. No focal deficits. SKIN: Warm and dry. Nonfasting blood sugar is a little bit high today 302 due to steroids and eating, steroid dose will be adjusted. ASSESSMENT: 1. A 79-year-old female with acute on chronic respiratory failure, improved. 2. Advanced chronic obstructive pulmonary disease, oxygen dependent now. 3. Recent diagnosis of primary lung cancer with liver metastasis, by definition it is a stage 4 cancer. Her workup so far has not revealed any tissue type to determine whether this is a small cell or non-small cell. 4. Type 2 diabetes. 5. Generalized debilitation. PLAN: 1. Keep in the ICU today. 2. Decrease steroids as ordered. 3. Discontinue Davey. 4. Increase diet. 5. Restart the hypoglycemics. 6. Hospice consult. 7. Supplemental oxygen for home. 8. She is improved. She may be ready for discharge home by tomorrow or the next day. She is now a DNR status per advanced directives. This is per her wishes. YEIMY DOLL MD DR: DRU/kevan JOB#: [id number] / [id number] SHEMAR Alba MD, KATHLEEN MD
[2019-12-26] MEDS: VENLAFAXINE 50 MG TABLET. PO SCH ×2 (15:41→20:05)
[2019-12-26] MEDS: methylPREDNISolone SOD SUCC PF 125 MG/2 ML VIAL. IV SCH (20:05)
[2019-12-26] MEDS: URSODIOL 300 MG CAPSULE. PO SCH (20:05)
[2019-12-27 06:08] VITALS: BP 160/87
[2019-12-27] MEDS: IPRATRPIUM/ALBUTEROL 0.5/2.5MG 3 ML NEBU. NEB SCH ×3 (06:16→15:27)
[2019-12-27] MEDS: LEVOTHYROXINE 75 MCG TABLET PO SCH (06:23)
--- NOTE | 2019-12-27 06:30 | NUR ---
Shift Note: Pt is a/ox4, VSS (had to increase O2 to 4 Liters NC to maintain sats >92%), pt voiding clear yellow urine, pt ambulating w/supervision only, pt did not request any morphine throughout the night (offered numerous times but pt refused any pain medication), pt able to rest during night.
[2019-12-27] MEDS: VENLAFAXINE 50 MG TABLET. PO SCH ×2 (08:32→13:19)
[2019-12-27] MEDS: URSODIOL 300 MG CAPSULE. PO SCH (08:32)
[2019-12-27] MEDS: methylPREDNISolone SOD SUCC PF 125 MG/2 ML VIAL. IV SCH (08:32)
[2019-12-27] MEDS: LISINOPRIL 10 MG TABLET PO SCH (08:33)
[2019-12-27] MEDS: INSULIN LISPRO 300 UNITS/3 ML VIAL. SQ SCH ×2 (08:34→12:01)
[2019-12-27] MEDS: MORPHINE SULFATE 4 MG/ML DISP.SYRIN. IV PRN (09:09)
--- NOTE | 2019-12-27 10:00 | NUR ---
Patient doing well today, awaiting for Dr Perales to arrive to see patient. Plan is to discharge home but states she would like to meet with hospice. Stated to doctor and nurse that she has had a difficult life with her health and wishes to live these last few years comfortably and pain free.
[2019-12-27 10:25] VITALS: BP 136/78
--- NOTE | 2019-12-27 13:15 | NUR ---
[facility] hospice here to see patient, patient would like to meet with Luis Enrique Cintron and Gavin and then decide which provider to use.
--- NOTE | 2019-12-27 14:15 | NUR ---
Good rao here at this time to see patient, once patient makes decision on hospice provider plan is to discharge home.
--- NOTE | 2019-12-27 14:32 | PN ---
DATE: 12/27/2019 SUBJECTIVE: The patient is sitting on the edge of the bed, eating her lunch comfortably, in no apparent distress. On questioning her, denied any complaint, in particular denied any chest pain or shortness of breath. PHYSICAL EXAMINATION: GENERAL: On examining her, she looked pale, no jaundice, cyanosis or thyromegaly. No jugular venous distention. No lower limb edema. VITAL SIGNS: Her heart rate was 87, blood pressure was 136/78, temperature was 98.1, respiratory rate was 18 and oxygen saturation was 95% on 4 liters of oxygen. HEAD, EYES, EARS, NOSE AND THROAT: Showed normocephalic, atraumatic. NECK: Supple. HEART: Showed normal first and second heart sounds. No gallop, rub or murmur. CHEST: Showed central trachea, equally reduced expansion, reduced air entry, vesicular sounds, a very few scattered rhonchi. No crepitation. ABDOMEN: Scaphoid, soft, nontender. No guarding or rigidity. No organomegaly. All hernial orifice intact. Bowel sounds normal. NEUROLOGIC: She is awake, alert, responding appropriately. All cranial nerves intact. She moves extremities without difficulty. EXTREMITIES: Examination of the extremities showed no clubbing, cyanosis or edema. LABORATORY DATA: Her blood sugar seems to be reasonably controlled. Her most recent chemistry showed a serum sodium 140, potassium 5.3, chloride 106, bicarbonate 23, anion gap of 11, BUN 36, creatinine 1.4, estimated GFR was 36 mL per minute. Her glucose was 196. Her most recent white cell count was 28,000, hemoglobin 16.2, hematocrit 49, MCV 97 and platelet count 298,000. Her arterial blood gases showed a pH of 7.32, pCO2 of 38, pO2 of 58. Her urinalysis was unremarkable. Her urine culture showed no growth and her blood cultures also showed no growth after 3 days. ASSESSMENT: 1. Acute on chronic hypoxic respiratory failure, much improved. 2. Advanced chronic obstructive pulmonary disease, oxygen dependent. 3. Recent diagnosis of primary lung cancer with liver metastases without any tissue diagnosis whether this is a small cell or non-small cell count. 4. Type 2 diabetes mellitus. 5. Generalized debility and extreme cachexia. Her body mass index is only 18.6 kilograms square meter. She is also known to have primary biliary cirrhosis diagnosed with liver biopsy before. PLAN: Apparently, the patient declined any aggressive treatment and as she stated wanted quality of life rather than quantity and would like to be comfortable. The psychotherapist social worker has consulted the hospice for the patient to be discharged home with hospice. SHEMAR TROY MD DR: MAMI/kevan JOB#: [id number] / [id number]
--- NOTE | 2019-12-27 14:50 | NUR ---
Patient states she feels a little rushed and would like to stay another day. Explained to patient that she is discharging today since she is medically stable and because she is requesting to be comfortable with hospice care. client hr manager spoke with patient and states she has chosen [facility] for her services.
--- NOTE | 2019-12-27 16:59 | NUR ---
Patient discharged home at this time, belongings and discharge information left with patient. Ambulated off unit via wheelchair to spouses vehicle. Marina Alonso spoke with and gave hospice binder to him, stated nurse will be out this evening to go over information regarding care.
--- NOTE | 2019-12-27 17:40 | DS ---
DATE OF DISCHARGE: 12/27/2019 HOSPITAL COURSE: The patient is a 79-year-old female patient who was admitted on 12/23/2019 with new onset of generalized weakness, not much urine output and some diffuse abdominal pain. She was recently diagnosed with lung cancer with liver metastases. The exact cell type remains to be seen. She has extensive past medical history including chronic obstructive pulmonary disease, chronic hypoxic respiratory failure. She has primary biliary cirrhosis and obviously lung cancer and she apparently was extensively investigated at [facility] and she did not really want to do any further aggressive investigation or treatment with her surgical radiation and chemotherapy. She stated that she wants quality of life rather than quantity and would like to go home with hospice to continue taking care of her zapata and painting and playing her piano knowing well that nature will take its course eventually. PHYSICAL EXAMINATION: GENERAL: When I saw her this afternoon, she was sitting at the edge of the bed comfortably in no apparent distress. No pallor, jaundice, cyanosis or thyromegaly. No jugular venous distention. No lower limb edema. VITAL SIGNS: Her heart rate was 85, blood pressure was 136/78, temperature was 98.1, respiratory rate was 12 and oxygen saturation was 93% on 4 liters of oxygen. HEAD, EYES, EARS, NOSE AND THROAT: Showed normocephalic, atraumatic. NECK: Supple. HEART: Showed normal first and second heart sounds with no gallop, rub or murmur. CHEST: Clear to auscultation. No crepitation or rhonchi. ABDOMEN: Distended, soft, nontender. No guarding or rigidity. No organomegaly. All hernial orifice intact. Bowel sounds normal. NEUROLOGIC: She was awake, alert. All her cranial nerves intact. She moves extremities without difficulty. She has marked muscle wasting and cachexia. Her body mass index is only 18.6 kilograms square meter. DISCHARGE MEDICATIONS: She was discharged home with hospice to continue on following medications: Aspirin 81 mg once a day, chlorpheniramine maleate 4 mg every 6 hours, cranberry 400 mg daily, Prolia 60 mg monthly for osteoporosis, fluorometholone 5 mL drops to both eyes as needed, furosemide 40 mg once a day, glucagon 1 mg intramuscular as needed, insulin detemir 15 units at bedtime, Lantus insulin 11 units at bedtime, insulin lispro ____ units daily. She is on levothyroxine 75 mcg once a day, lisinopril 10 mg once a day, multivitamin 1 tablet once a day, potassium chloride 8 mEq daily, scopolamine 1 patch topically every 72 hours, tiotropium bromide for Spiriva HandiHaler 1 inhalation once a day, ursodiol for Actigall 300 mg twice a day and venlafaxine for Effexor 75 mg twice a day for depression. FINAL DISCHARGE DIAGNOSES: 1. Acute on chronic hypoxic respiratory failure, much improved. 2. Advanced chronic obstructive pulmonary disease, oxygen dependent. 3. Recent diagnosis of primary lung cancer with liver metastasis without any tissue diagnosis of either small or non-small cell cancer. 4. Type 2 diabetes. 5. Generalized debility, extreme cachexia. 6. Primary biliary cirrhosis diagnosed with liver biopsy before. The patient will be discharged home with hospice. SHEMAR TROY MD DR: MAMI/kevan JOB#: [id number] / [id number]
== END 2019-12-27 17:04 | disposition hospice, home (50) | DRG 189 ==
LOC: ER 18:25 → ICU 20:47
PROVIDERS: ADMIT Hospitalist; ATTEND Internal Medicine
DX: J96.21 Acute and chronic respiratory failure with hypoxia (principal); C34.90 Malignant neoplasm of unspecified part of unspecified bronchus or lung; C78.7 Secondary malignant neoplasm of liver and intrahepatic bile duct; R64 Cachexia; E03.9 Hypothyroidism, unspecified; E11.9 Type 2 diabetes mellitus without complications; E86.0 Dehydration; F17.200 Nicotine dependence, unspecified, uncomplicated; I10 Essential (primary) hypertension; J44.9 Chronic obstructive pulmonary disease, unspecified; K74.3 Primary biliary cirrhosis; Z79.4 Long term (current) use of insulin; Z96.41 Presence of insulin pump (external) (internal); Z99.81 Dependence on supplemental oxygen; F32.9 Major depressive disorder, single episode, unspecified; Z92.21 Personal history of antineoplastic chemotherapy; Z92.3 Personal history of irradiation; Z66 Do not resuscitate
CPT/HCPCS: 36415; 71045; 80048; 80053; 81001; 82140; 82803; 82947; 83605; 85007; 85025; 87040; 87086; 94640; 99406; J1815; J1956; J2270; J2405; J2920; J2930; J3010; J7030